=== PATIENT | female | born 1950 | race Caucasian/White ===

== ENCOUNTER → 2016-03-22 | Outpatient (CLI) | payer OTHER | LOC: BMCIMAGING 14:52 | DX: Z12.31 Encounter for screening mammogram for malignant neoplasm of breast (principal) | CPT/HCPCS: G0202 ==

== ENCOUNTER → 2016-04-06 | Outpatient (CLI) | payer OTHER | LOC: BMCIMAGING 13:57 | DX: R93.8 Abnormal findings on diagnostic imaging of other specified body structures (principal) | CPT/HCPCS: G0206 ==

== ENCOUNTER → 2017-04-24 | Outpatient (CLI) | payer OTHER | LOC: FIMAGING 08:44 | PROVIDERS: ATTEND Internal Medicine | DX: Z12.31 Encounter for screening mammogram for malignant neoplasm of breast (principal) ==

== ENCOUNTER 2018-05-26 20:24 | Emergency (ER) | payer OTHER ==
[2018-05-26 20:29] VITALS: BP 118/73
--- NOTE | 2018-05-26 20:48 | EDPHY ---
General Time Seen by Provider: 05/26/18 20:34 Narrative: CLINICAL IMPRESSION: Right 2nd digit finger laceration ASSESSMENT/PLAN: 67-year-old female presents to the emergency department with a very small laceration to the distal lateral aspect of the right 2nd finger sustained on a bread knife approximately 4 hr ago. Wound is approximately 2 mm long, not actively bleeding, no deep structure involvement, no nail bed or finger nail involvement, intact distal neurovascular exam and normal range of motion. Tetanus up-to-date. Dermabond applied, Band-Aid provided, primary care follow- up encouraged, warning signs return to ED sooner alignment discharge. DIFFERENTIAL DIAGNOSIS: includes but not limited to laceration of tendon or vascular structure, underlying fracture, laceration with retained FB ED PROCEDURES: Laceration Repair Laceration is not actively bleeding, very small, approximately 3 mm, no deep structure involvement, distal neurovascular exam intact. Will apply Dermabond and bandage. CHIEF COMPLAINT: Laceration HPI: 67-year-old female presents to the emergency department 4 hr after lacerating the distal lateral tip of the right 2nd finger on a bread knife. She is right- hand dominant. Tetanus up-to-date. Patient contacted a friend in [place] who is in medicine and told her to come to the ED because the wound was bleeding. The wound is not bleeding currently. She reports no numbness or loss of sensation. Full range of motion. No nail or nail bed involvement. PAST MEDICAL HISTORY: None reported Pertinent Past Surgical History: None reported Social History: None reported REVIEW OF SYSTEMS: All other systems negative Constitutional: No fever, no chills Musculoskeletal: No deformity, no joint pain Skin: Laceration to right 2nd finger Neurological: No sensory loss or weakness, 2 point discrimination intact. PHYSICAL EXAM: General Appearance: Alert, oriented, appropriate for age, cooperative, NAD, well hydrated, non-toxic appearing, VSS, no hypoxia. Neurological: Alert and oriented x 3 Skin: 2 mm laceration to the distal lateral aspect of the right 2nd finger. No active bleeding Musculoskeletal: Full range of motion, distal neurovascular exam intact. MEDICAL DECISION MAKING: Patient was seen independently. Secondary supervising physician at time of evaluation was Dr. Bro . Diagnosis: Finger laceration. New, requires workup Summary: See assessment and plan for summary of ED visit Patient Progress improved. - History Smoking Status: Never smoked - Objective Vital Signs: Initial Vital Signs Temperature (C) 36.7 C 05/26/18 20:28 Heart Rate 69 05/26/18 20:28 Respiratory Rate 16 05/26/18 20:28 Blood Pressure 118/73 05/26/18 20:28 O2 Sat (%) 97 05/26/18 20:28 O2 Delivery Mode Room Air Allergies/Adverse Reactions: No Known Allergies Allergy (Unverified 05/26/18 20:27) Departure - Departure Disposition: Home, Routine, Self-Care Clinical Impression: Finger laceration Qualifiers: Encounter type: initial encounter Finger: index finger Damage to nail status: without damage Foreign body presence: without foreign body Laterality: right Qualified Code(s): S61.210A - Laceration without foreign body of right index finger without damage to nail, initial encounter Condition: Good Instructions: Laceration (ED) Additional Instructions: YOUR LACERATION DOES NOT NEED SUTURES. DERMABOND WAS APPLIED. WE DO NOT HAVE FINGER COTS. YOU CAN CONTACT LOCAL PHARMACIES FOR THESE. PLEASE TRY TO AVOID GETTING THE FINGER WET FOR 3-4 DAYS TO ALLOW SKIN GLUE TO HOLD THE WOUND SHUT. RETURN TO THE EMERGENCY DEPARTMENT FOR INCREASED PAIN, SWELLING, DISCHARGE FROM THE WOUND, REDNESS TO THE FINGER, FEVERS OR ANY OTHER CONCERNS FOR INFECTION. Referrals: Jocelynn Wagoner MD [Primary Care Provider] - 3-4 days, if not improved
[2018-05-26] MEDS ORDERED: SKIN ADHESIVE (DERMABOND) 1 EACH TP ONE (20:50)
== END 2018-05-26 21:01 | disposition home or self-care (01) ==
PROC: 0HQFXZZ Repair Right Hand Skin, External Approach (ICD-10-PCS; principal; 2018-05-26)
DX: S61.210A Laceration without foreign body of right index finger without damage to nail, initial encounter (principal); W26.0XXA Contact with knife, initial encounter; Y92.511 Restaurant or cafe as the place of occurrence of the external cause; Y99.0 Civilian activity done for income or pay

== ENCOUNTER → 2018-06-07 | Outpatient (CLI) | payer OTHER | LOC: FIMAGING 07:52 | PROVIDERS: ATTEND Family Medicine | DX: Z12.31 Encounter for screening mammogram for malignant neoplasm of breast (principal) ==